=== PATIENT | female | born 1995 | race Caucasian/White ===

== ENCOUNTER 2018-12-01 14:30 | Emergency (ER) | payer OTHER ==
[~2018-12-01] VITALS: Ht 157.5 cm; Wt 101.2 kg
[2018-12-01 14:32] VITALS: Ht 157.5 cm; Wt 101.2 kg
[2018-12-01 15:29] VITALS: BP 128/90
== END 2018-12-01 16:02 | disposition home or self-care (01) ==
LOC: ED 14:30
DX: B34.9 Viral infection, unspecified (principal); J45.909 Unspecified asthma, uncomplicated; R03.0 Elevated blood-pressure reading, without diagnosis of hypertension

== ENCOUNTER 2021-01-16 19:16 | Emergency (ER) | payer MEDICAID ==
[~2021-01-16] VITALS: Ht 157.5 cm; Wt 101.7 kg
[2021-01-16 19:32] VITALS: Ht 157.5 cm; Wt 101.7 kg
[2021-01-16 21:01] LABS: microscopic required? YES; urine erythrocyte 3+ (NEGATIVE)
[2021-01-16 21:02] LABS: BASOPHIL % 0.4 % (0.2-1.3); PLATELET COUNT 281 x10^3mcL (179-408)
[2021-01-16 21:18] LABS: RED CELL DISTRIBUTION WIDTH 19.8 % (12.3-17.7)
[2021-01-16 23:22] VITALS: BP 114/60
== END 2021-01-16 23:22 | disposition home or self-care (01) ==
LOC: ED 19:16
PROVIDERS: Student in an Organized Health Care Education/Training Program
DX: O03.9 Complete or unspecified spontaneous abortion without complication (principal)